=== PATIENT | female | born 1990 | race Caucasian/White ===

== ENCOUNTER 2024-06-23 20:54 | Emergency (ER) | payer BC ==
[~2024-06-23] VITALS: Ht 185.4 cm; Wt 91.8 kg
[2024-06-23] MEDS ORDERED: CLON-850 PO (21:06)
[2024-06-23] MEDS ORDERED: LAMO200T2 PO (21:06)
[2024-06-23] MEDS ORDERED: LANS30CA56 PO (21:06)
[2024-06-23] MEDS ORDERED: OXCA150T14 PO (21:06)
[2024-06-23 22:27] LABS: BASOPHILS # (AUTO) 0.1 X10'3 (0-0.2); BASOPHILS % (AUTO) 0.6 % (0-1); EOSINOPHILS # (AUTO) 0.3 X10'3 (0-0.9); EOSINOPHILS % (AUTO) 3.2 % (0-6); HEMATOCRIT 43.6 % (35.0-45.0); HEMOGLOBIN 14.8 g/dl (12.0-16.0); LYMPHOCYTES # (AUTO) 2.2 X10'3 (1.1-4.8); LYMPHOCYTES % (AUTO) 23.2 % (21-51); MEAN CORPUSCULAR HEMOGLOBIN 31.8 PG (27.0-31.0); MEAN CORPUSCULAR HGB CONC 33.8 g/dL (33.0-36.5); MEAN CORPUSCULAR VOLUME 94.1 FL (78-98); MEAN PLATELET VOLUME 7.9 FL (7.4-10.4); MONOCYTES # (AUTO) 0.7 X10'3 (0-0.9); MONOCYTES % (AUTO) 7.6 % (2-12); NEUTROPHILS # (AUTO) 6.1 X10'3 (1.8-7.7); NEUTROPHILS % (AUTO) 65.4 % (42-75); PLATELET COUNT 337 X10'3 (140-440); RED BLOOD COUNT 4.64 X10'6 (4.20-5.60); RED CELL DISTRIBUTION WIDTH 12.4 % (11.5-14.5); WHITE BLOOD COUNT 9.3 X10'3 (4.5-11.0)
[2024-06-23 22:51] LABS: ALBUMIN 3.6 G/DL (3.4-5.0); ANION GAP 7 (8-16); BLOOD UREA NITROGEN 11 MG/DL (7-18); BUN/CREATININE RATIO 10.7 (10.0-20.0); CALCIUM 8.9 MG/DL (8.5-10.1); CHLORIDE 106 MMOL/L (99-107); CREATININE 1.03 MG/DL (0.40-0.90); ETHANOL < 10 MG/DL (<10); GLUCOSE 93 MG/DL (70-104); POTASSIUM 4.1 MMOL/L (3.5-5.1); SODIUM 141 MMOL/L (135-145); THYROID STIMULATING HORMONE 2.14 ulU/ml (0.34-4.50); eCRCL 91 ML/MIN; eGFR 61 ML/MIN
[2024-06-23 23:12] LABS: BILIRUBIN,URINE NEGATIVE (Neg); CLARITY,URINE CLOUDY (Clear); COLOR,URINE YELLOW (Yellow); GLUCOSE, URINE NEGATIVE (Neg); KETONES,URINE NEGATIVE (Neg); LEUKOCYTE ESTERASE ,URINE SMALL (Neg); NITRITES, URINE NEGATIVE (Neg); OCCULT BLOOD,URINE NEGATIVE (Neg); PROTEIN,URINE NEGATIVE (Neg); UROBILINOGEN,URINE 0.2 E.U/dL (0.2-1.0)
[2024-06-23 23:13] LABS: URINE HCG NEGATIVE (NEG)
[2024-06-23 23:18] LABS: UA COLLECTION TYPE CLN CATCH MIDSTREAM
[2024-06-23 23:19] LABS: BACTERIA,URINE FEW /HPF (Neg); RBC,URINE 0-2 /HPF (0-2)
[2024-06-23 23:20] LABS: AMORPHOUS PHOSPHATES 4+; MUCUS STRANDS FEW /LPF (Neg); RENAL CELLS, URINE FEW /HPF; SQUAMOUS EPITHELIAL CELL,UR MODERATE /LPF (FEW); TRANSITIONAL EPI CELLS,URINE FEW /HPF
[2024-06-23 23:27] LABS: URINE AMPHETAMINE SCREEN NEGATIVE (Neg); URINE BARBITUATE SCREEN NEGATIVE (Neg); URINE BENZODIAZEPINES SCREEN NEGATIVE (Neg); URINE CANNABINOID SCREEN NEGATIVE (Neg); URINE COCAINE SCREEN NEGATIVE (Neg); URINE METHADONE SCREEN NEGATIVE (Neg); URINE OPIATE SCREEN NEGATIVE (Neg); URINE PHENCYCLIDINE SCREEN NEGATIVE (Neg)
[2024-06-23] MEDS ORDERED: lansoprazole 15mg solutab PO SCH (23:45)
[2024-06-23] MEDS ORDERED: oxcarbazepine 150mg tablet PO SCH (23:45)
[2024-06-23] MEDS ORDERED: lamoTRIgine 100mg tablet PO SCH (23:45)
[2024-06-23] MEDS ORDERED: clonazePAM 0.5mg tablet PO SCH (23:45)
[2024-06-24] MEDS: lansoprazole 15mg solutab PO ONE
[2024-06-24] MEDS: clonazePAM 0.5mg tablet PO ONE (00:01)
[2024-06-24] MEDS: oxcarbazepine 150mg tablet PO ONE (00:01)
[2024-06-24] MEDS: lamoTRIgine 100mg tablet PO ONE (00:01)
[2024-06-24] MEDS: lansoprazole 15mg solutab PO SCH (08:00)
[2024-06-24] MEDS: lamoTRIgine 100mg tablet PO SCH (08:42)
[2024-06-24] MEDS: oxcarbazepine 150mg tablet PO SCH (09:08)
[2024-06-24 14:20] VITALS: BP 86/57; PULSE 92; RESP 16; TEMP 98; O2SAT 96
[2024-06-24] MEDS ORDERED: clonazePAM 0.5mg tablet PO SCH (21:00)
== END 2024-06-24 13:15 | disposition home or self-care (01) ==
LOC: ER 20:54
DX: R45.851 Suicidal ideations (principal); F32.A Depression, unspecified; F41.9 Anxiety disorder, unspecified; F41.0 Panic disorder [episodic paroxysmal anxiety]; Z79.899 Other long term (current) drug therapy; Z20.822 Contact with and (suspected) exposure to COVID-19
CPT/HCPCS: 36415; 80048; 80305; 80320; 81001; 81025; 84443; 85025; 87811; 99284; 99285